=== PATIENT | male | born 1975 | race African-American/Black ===

== ENCOUNTER 2023-11-14 12:07 | Inpatient (IN) | payer OTHER ==
[~2023-11-14] VITALS: Ht 175.3 cm; Wt 84.1 kg
[2023-11-14] MEDS: ASPIRIN 81MG EC TABLET PO ONE (14:07)
[2023-11-14] MEDS: IOHEXOL-350 100 ML BOTTLE ONE (14:08)
[2023-11-14] MEDS: LABETALOL 5MG/ML 4ML INJ IV ONE (14:08)
[2023-11-14 14:17] LABS: CHLORIDE 108 mEq/L (98-107); POTASSIUM 3.9 mEq/L (3.5-5.1); SODIUM 137 mEq/L (136-145)
[2023-11-14 14:18] LABS: CALCIUM 9.1 mg/dL (8.7-10.4); CARBON DIOXIDE 23 mEq/L (21-32)
[2023-11-14 14:19] LABS: PROTHROMBIN TIME 11.1 sec (9.6-11.0)
[2023-11-14 14:23] LABS: CREATININE 2.2 mg/dL (0.6-1.3); GLUCOSE 90 mg/dL (70-105); TROPONIN I HIGH SENSITIVITY 12 ng/L (3.0-53); UREA NITROGEN BLOOD 20 mg/dL (9-23)
[2023-11-14 14:31] LABS: ETHANOL BLOOD < 10 mg/dL (<10)
[2023-11-14 14:38] LABS: CLARITY URINE CLEAR (CLEAR); COLOR URINE YELLOW (YELLOW); GLUCOSE URINE 3+ (NEGATIVE); KETONES URINE NEGATIVE (NEGATIVE); LEUKOCYTE ESTERASE URINE NEGATIVE (NEGATIVE); NITRITE URINE NEGATIVE (NEGATIVE); OCCULT BLOOD URINE NEGATIVE (NEGATIVE); PROTEIN URINE NEGATIVE (NEGATIVE); SPECIFIC GRAVITY URINE 1.026 (1.005-1.030); UROBILINOGEN URINE 0.2 E.U./dL (0.2-1.0)
[2023-11-14 14:47] LABS: DIFFERENTIAL COMMENT 0; EOSINOPHILS % 0.8 % (0.0-5.0); HEMATOCRIT. 38.5 % (42.0-52.0); LYMPHOCYTES % 40.3 % (20.0-50.0); MEAN CORPUSCULAR HEMOGLOBIN 23.3 pg (28.0-32.0); MEAN CORPUSCULAR HGB CONC 31.1 g/dL (31.0-37.0); MEAN CORPUSCULAR VOLUME 74.8 fL (80.0-94.0); MEAN PLATELET VOLUME 10.4 fl (7.4-10.4); MONOCYTES % 14.4 % (2.0-8.0); NEUTROPHILS % 43.5 % (40.0-76.0); PLATELET 192 x1000/uL (130-400); RED BLOOD CELL COUNT 5.15 mill/uL (4.7-6.1); WHITE BLOOD COUNT 3.9 x1000/uL (4.5-11.0)
[2023-11-14 15:31] LABS: *AMPHETAMINES SCREEN URINE NEGATIVE (NEGATIVE); *BARBITURATES SCREEN URINE NEGATIVE (NEGATIVE); *BENZODIAZEPINES SCREEN URINE NEGATIVE (NEGATIVE); *COCAINE SCREEN URINE NEGATIVE (NEGATIVE); CANNABINOID URINE SCREEN NEGATIVE (NEGATIVE); METHADONE URINE SCREEN NEGATIVE (NEGATIVE); OPIATES URINE SCREEN NEGATIVE (NEGATIVE); PHENCYCLIDINE URINE SCREEN NEGATIVE (NEGATIVE)
[2023-11-14 15:32] LABS: ECSTASY MDMA SCREEN URINE NEGATIVE (NEGATIVE)
[2023-11-14 15:42] LABS: BACTERIA URINE NONE SEEN; RBC URINE NONE SEEN /hpf (0-2); SQUAMOUS EPITHELIAL CELL URINE RARE /lpf (RARE/1+); WBC URINE 0-2 /hpf (0-2)
[2023-11-14] MEDS ORDERED: IPRATROPIUM/ALBUTEROL 0.5-3(2.5)MG/3ML NEB HHN PRN (17:30)
[2023-11-14] MEDS ORDERED: ONDANSETRON HCL 4MG/2ML INJ IV PRN (17:30)
[2023-11-14] MEDS ORDERED: GUAIFENESIN 200MG/10ML SUGAR FREE UDC PO PRN (17:30)
[2023-11-14] MEDS ORDERED: DOCUSATE SODIUM 100MG CAPSULE PO PRN (17:30)
[2023-11-14] MEDS ORDERED: MAGNESIUM/ALUMINUM HYDROXIDE/SIMETHICONE 30ML UDC PO PRN (17:30)
[2023-11-14] MEDS ORDERED: ACETAMINOPHEN 325MG TABLET PO PRN ×2 (17:30)
[2023-11-14] MEDS ORDERED: FURO40TA5 PO (17:36)
[2023-11-14] MEDS ORDERED: ATOR-2 PO (17:36)
[2023-11-14] MEDS ORDERED: CARV12.545 PO (17:36)
[2023-11-14] MEDS ORDERED: PANT40TA51 PO (17:36)
[2023-11-14] MEDS ORDERED: SPIR25TA6 PO (17:36)
[2023-11-14] MEDS ORDERED: ASPI-1406 PO (17:36)
[2023-11-14] MEDS ORDERED: HYDR25TA78 PO (17:36)
[2023-11-14] MEDS ORDERED: EMPA25TA PO (17:36)
[2023-11-14] MEDS: CLONIDINE 0.1MG TABLET PO PRN (19:14)
[2023-11-14 20:57] LABS: IRON 56 ug/dL (65-175)
[2023-11-14 20:59] LABS: LDL CHOLESTEROL 27 mg/dL (5-100); TRIGLYCERIDE 63 mg/dL (0-150)
[2023-11-14 21:00] LABS: ALANINE AMINOTRANSFERASE 13 IU/L (10-49); ASPARTATE AMINOTRANSFERASE 13 IU/L (<34); BILIRUBIN DIRECT 0.2 mg/dL (<=3.0); CHOLESTEROL 77 mg/dL (<200); HDL CHOLESTEROL 36 mg/dL (>55); TOTAL IRON BINDING CAPACITY 168 ug/dl (250-425)
[2023-11-14 21:01] LABS: BILIRUBIN TOTAL 0.6 mg/dL (0.1-1.0); PROTEIN TOTAL 6.9 g/dL (6.0-8.3)
[2023-11-14 21:04] LABS: T4 FREE 1.37 ng/dL (0.89-1.76); THYROID STIMULATING HORMONE 0.95 uIU/mL (0.55-4.78)
[2023-11-14] MEDS: HYDRALAZINE HCL 25MG TABLET PO SCH (21:22)
[2023-11-14 22:02] VITALS: BP 156/108; PULSE 78; RESP 23; TEMP 98
[2023-11-15] VITALS: BP 143/89; PULSE 87; RESP 18; TEMP 97.8
[2023-11-15] MEDS: SPIRONOLACTONE 25MG TABLET PO SCH (00:43)
[2023-11-15] MEDS: CARVEDILOL 12.5MG TABLET PO SCH (00:43)
[2023-11-15 04:00] VITALS: BP 151/99; PULSE 86; RESP 18; TEMP 98
[2023-11-15 07:28] LABS: BASOPHILS % 0.7 % (0.0-2.0); CARBON DIOXIDE 24 mEq/L (21-32); CHLORIDE 108 mEq/L (98-107); DIFFERENTIAL COMMENT 0; EOSINOPHILS % 1.3 % (0.0-5.0); HEMATOCRIT. 35.4 % (42.0-52.0); HEMOGLOBIN. 11.2 g/dL (14.0-18.0); LYMPHOCYTES % 33.7 % (20.0-50.0); MEAN CORPUSCULAR HEMOGLOBIN 23.6 pg (28.0-32.0); MEAN CORPUSCULAR HGB CONC 31.6 g/dL (31.0-37.0); MEAN CORPUSCULAR VOLUME 74.7 fL (80.0-94.0); MEAN PLATELET VOLUME 10.3 fl (7.4-10.4); MONOCYTES % 14.9 % (2.0-8.0); NEUTROPHILS % 49.4 % (40.0-76.0); PLATELET 185 x1000/uL (130-400); POTASSIUM 4.3 mEq/L (3.5-5.1); RED BLOOD CELL COUNT 4.74 mill/uL (4.7-6.1); RED CELL DISTRIBUTION WIDTH 16.8 % (11.6-14.6); SODIUM 139 mEq/L (136-145); WHITE BLOOD COUNT 4.1 x1000/uL (4.5-11.0)
[2023-11-15 07:29] LABS: CALCIUM 9.3 mg/dL (8.7-10.4)
[2023-11-15 07:33] LABS: IRON 41 ug/dL (65-175)
[2023-11-15 07:34] LABS: CREATININE 2.1 mg/dL (0.6-1.3); GLUCOSE 98 mg/dL (70-105); UREA NITROGEN BLOOD 20 mg/dL (9-23)
[2023-11-15 07:36] LABS: TOTAL IRON BINDING CAPACITY 166 ug/dl (250-425)
[2023-11-15 08:00] VITALS: BP 145/99; PULSE 74; RESP 21; TEMP 98.5
[2023-11-15] MEDS: ASPIRIN 81MG EC TABLET PO SCH (09:50)
[2023-11-15] MEDS: FUROSEMIDE 40MG TABLET PO SCH (09:50)
[2023-11-15 12:00] VITALS: BP 147/107; PULSE 74; RESP 12; TEMP 98.8
[2023-11-15] MEDS: CLOPIDOGREL 75MG TABLET PO SCH (13:08)
[2023-11-15] MEDS: FERROUS SULFATE 325MG TABLET PO SCH (13:09)
[2023-11-15 16:00] VITALS: BP 158/102; PULSE 74; RESP 18; TEMP 98.7
[2023-11-15 20:00] VITALS: PULSE 69; RESP 20; TEMP 98.8
[2023-11-16] VITALS: BP 142/86; PULSE 76; RESP 20; TEMP 97.2
[2023-11-16 04:00] VITALS: BP 136/74; PULSE 80; RESP 18; TEMP 97.6
[2023-11-16 08:00] VITALS: BP 145/97; PULSE 75; RESP 18; TEMP 97.8
[2023-11-16 12:00] VITALS: BP 151/111; PULSE 88; RESP 18; TEMP 98
[2023-11-16] MEDS ORDERED: HYDRALAZINE 20MG/ML VIAL IV ONE (14:15)
[2023-11-16] MEDS: HYDRALAZINE HCL 25MG TABLET PO NR (14:27)
[2023-11-16 16:02] VITALS: BP 143/99; PULSE 78; TEMP 98.4; O2SAT 98
[2023-11-16] MEDS ORDERED: HYDRALAZINE HCL 25MG TABLET PO SCH (22:00)
== END 2023-11-16 16:21 | disposition home or self-care (01) | DRG 65 ==
LOC: ER 12:16 → 5WST 15:12 → EDBEDREQTM 15:13 → EDBEDREQ 15:13 → 3WST 21:34
PROVIDERS: ADMIT Hospitalist; ATTEND Hospitalist
DX: I63.89 Other cerebral infarction (principal); D68.59 Other primary thrombophilia; I50.9 Heart failure, unspecified; G83.21 Monoplegia of upper limb affecting right dominant side; I11.0 Hypertensive heart disease with heart failure; R29.706 NIHSS score 6; D50.9 Iron deficiency anemia, unspecified; Z79.02 Long term (current) use of antithrombotics/antiplatelets; Z79.82 Long term (current) use of aspirin; Z91.148 Patient's other noncompliance with medication regimen for other reason; Z79.899 Other long term (current) drug therapy
CPT/HCPCS: 36415; 70496; 70498; 70551; 71045; 80048; 80061; 80076; 80305; 80320; 81003; 82728; 83036; 83540; 83550; 83880; 84439; 84443; 84484; 85025; 93005; 93306; 99291; J3490; Q9967; G0480